=== PATIENT | female | born 1990 | race Caucasian/White ===

== ENCOUNTER 2022-11-27 18:57 | Emergency (ER) | payer OTHER ==
[2022-11-27] MEDS ORDERED: DEXAMETHASONE 10 MG/ML VIAL PO STA (19:23)
[2022-11-27] MEDS ORDERED: cephALEXin 250 MG CAPSULE PO STA (19:23)
[2022-11-27] MEDS ORDERED: CHERRY SYRUP 10 ML UDC PO ONE (19:23)
--- NOTE | 2022-11-27 19:25 | ED Physician Documentation ---
History of Present Illness - Stated complaint Stated Complaint: SOA,SORE THROAT,WEAKNESS - Chief complaint Chief Complaint: Heent - Additonal information Additional information: 32-year-old female presents emergency department for evaluation of fevers, body aches and sore throat with tonsillar exudate. Symptoms began yesterday. She recently returned from [place]. Denies any similar illness in friends or family. She did do a rapid COVID test today that was negative. States that when she gets strep throat she feels horrible much like right now. Review of Systems Constitutional: reports: Fever Nose: denies: Congestion Throat: reports: Sore throat, Swollen tonsils Respiratory: denies: Dyspnea, Cough GI: reports: Reviewed and negative : reports: Reviewed and negative PD PAST MEDICAL HISTORY - Present Medications Home Medications: Ambulatory Orders Medication Instructions Recorded Confirmed Lisinopril [Zestril] 10 mg PO DAILY 11/27/22 11/27/22 cephALEXin [Keflex] 500 mg PO BID #14 cap 11/27/22 - Allergies Allergies/Adverse Reactions: Allergies Allergy/AdvReac Type Severity Reaction Status Date / Time Penicillins Allergy Anaphylaxis Verified 11/27/22 19:13 PD ED PE NORMAL - General General: Alert and oriented X 3, No acute distress, Well developed/nourished - HEENT HEENT: Atraumatic, Ears normal, Moist mucous membranes, Pharynx benign (Beefy red posterior oropharynx. Uvula is midline. Copious amount of tonsillar exudate on bilateral tonsils. No soft palate asymmetry or swelling. Normal phonation. Full range of motion of the neck) - Neck Neck: No adenopathy (Tender anterior cervical lymphadenopathy.) - Cardiac Cardiac: RRR (Mild tachycardia rate of 110), No murmur, Strong equal pulses - Respiratory Respiratory: No respiratory distress, Clear bilaterally - Abdomen Abdomen: Normal bowel sounds, Soft Results - Vitals Vitals: Vital Signs - 24 hr 11/27/22 19:00 Temperature 38.6 C H Heart Rate 111 H Respiratory 16 Rate Blood Pressure 151/91 H O2 Saturation 100 Oxygen O2 Source Room air PD Medical Decision Making - ED course Complexity details: reviewed results, re-evaluated patient, considered differential, d/w patient ED course: Well-appearing 32-year-old female presents to the emergency department for evaluation of fever body aches and sore throat with tonsillar exudate. Symptoms began yesterday. On presentation she does have a fever. No cough. She does have tender anterior cervical lymphadenopathy. She has copious tonsillar exudate. She does meet 4 of the 5 [facility] criteria. Rapid strep was Negative however patient does meet enough of the center criteria to consider empiric treatment. Patient will be started on Keflex given her history of penicillin allergy. She was given a single dose of Decadron orally today here in the emergency department to help with pain and inflammation. She is discharged home in stable condition with the usual emergent return precautions discussed Departure - Departure Disposition: Home, Self Care Clinical Impression: Pharyngitis Qualifiers: Pharyngitis/tonsillitis etiology: unspecified etiology Qualified Code(s): J02.9 - Acute pharyngitis, unspecified Condition: Stable Record reviewed to determine appropriate education?: Yes Instructions: ED Strep Pharyngitis Poss Prescriptions: cephALEXin [Keflex] 500 mg PO BID #14 cap Comments: Migdalia you came to the emergency department today because you began having fevers and sore throat as well as a lot of exudate on your tonsils. The rapid strep test that we did was negative however you have enough symptoms and are symptomatic that I think we should treat you for possible strep pharyngitis today anyway. [place], an [place] in the [place] department we did give you a single dose of Decadron which is a steroid which should help with pain and inflammation of the neck several days. Recommend you gargle with warm salt water 2-3 times a day. You can continue to take Tylenol and ibuprofen for discomfort. Return to the ER if you find that your symptoms are worsening despite the antibiotics
[2022-11-27 19:43] LABS: RAPID STREP SCREEN Negative (Negative)
[2022-11-27 19:52] VITALS: BP 135/81
== END 2022-11-27 20:10 | disposition home or self-care (01) ==
LOC: ED 18:57
DX: J02.9 Acute pharyngitis, unspecified (principal)
CPT/HCPCS: 87070; 87430; 99283; A9270

== ENCOUNTER 2024-04-16 19:42 | Emergency (ER) | payer OTHER ==
--- NOTE | 2024-04-16 20:36 | ED Physician Documentation ---
History of Present Illness - Stated complaint Stated Complaint: LT PINKY PX - Chief complaint Chief Complaint: Ext Problem - History obtained from History obtained from: Patient - Additonal information Additional information: 33-year-old woman presents with left Fifth finger pain after injuring it while walking her dog. Patient was holding the leash when he ran to the side and "took her pinky" to the left. Her finger is now swollen and having difficulty moving it. PD PAST MEDICAL HISTORY - Past Medical History [employer]: Other Other Past Medical History: PCOS - Present Medications Home Medications: Ambulatory Orders Medication Instructions Recorded Confirmed Lisinopril [Zestril] 10 mg PO DAILY 11/27/22 11/27/22 cephALEXin [Keflex] 500 mg PO BID #14 cap 11/27/22 - Allergies Allergies/Adverse Reactions: Allergies Allergy/AdvReac Type Severity Reaction Status Date / Time Penicillins Allergy Anaphylaxis Verified 04/16/24 19:58 - Social History Does the pt smoke?: No Smoking Status: Never smoker - Immunizations Immunizations are current?: Yes PD ED PE NORMAL - Vitals Vital signs reviewed: Yes - General General: Alert and oriented X 3, No acute distress, Well developed/nourished - HEENT HEENT: Atraumatic, PERRL, EOMI - Derm Derm: Normal color, Warm and dry - Extremities Extremities: Other (L fifth finger ttp along pip joint, proximal phalanx, dip joint, and distal phalanx. tender with rom of L fifth finger. good capillary refill . normal sensation. mild swelling) Results - Vitals Vitals: Vital Signs - 24 hr 04/16/24 19:53 Temperature 36.5 C Heart Rate 86 Respiratory 18 Rate Blood Pressure 144/105 H O2 Saturation 100 Oxygen O2 Source Room air PD Medical Decision Making - ED course ED course: 33-year-old woman presented with left fifth finger pain after injuring it while walking her dog. X-rays were ordered and showed minimally displaced comminuted intermediate phalanx fracture. This was chelly taped and symptomatic care was discussed. Patient received 30 mg of IM Toradol with improvement in pain. Plan symptomatic care and follow-up outpatient with orthopedics as needed in 10 days. Return precautions given. Departure - Departure Disposition: 01 Home, Self Care Clinical Impression: Finger fracture Condition: Stable Instructions: ED WILLI, ED Fx Finger Closed Follow-Up: Don Hoyos MD [Provider Admit Priv/Credential] - Comments: You were seen in the emergency department for pinky pain. You have a small fracture of your pinky at the intermediate fifth phalanx. You can take ibuprofen 600 mg with food every 6 hours as needed for pain. Please follow-up with orthopedics if no improvement in 10 days and return to the emergency department if you have any new or worsening symptoms or other concerns. Forms: PCP List
[2024-04-16] MEDS: KETOROLAC 30 MG/ML VIAL IM STA (20:45)
--- NOTE | 2024-04-16 22:14 | XRAY Report ---
PROCEDURE: Hand 3+V LT INDICATIONS: hand inj TECHNIQUE: 3 views of the hand(s) acquired. COMPARISON: None. FINDINGS: Bones: Acute oblique fracture through mid to distal shaft of fifth middle phalanx is seen without si gnificant displacement or angulation at fracture site. No other fracture or dislocation. No suspiciou s bony lesions. Soft tissues: No suspicious soft tissue calcifications or masses. IMPRESSION: Minimally displaced oblique fracture involving mid to distal shaft of fifth middle phalanx. No other fracture or dislocation. Reviewed by: Lm Wallace MD on 04/16/2024 10:13 PM PDT Approved by: Lm Wallace MD on 04/16/2024 10:13 PM PDT Station ID: [id number]
[2024-04-16 22:24] VITALS: BP 130/86; O2SAT 98
== END 2024-04-16 22:19 | disposition home or self-care (01) ==
LOC: ED 19:42
DX: S62.627A Displaced fracture of middle phalanx of left little finger, initial encounter for closed fracture (principal); X50.1XXA Overexertion from prolonged static or awkward postures, initial encounter; Y93.K1 Activity, walking an animal; Y92.89 Other specified places as the place of occurrence of the external cause
CPT/HCPCS: 96372; 99283